=== PATIENT | female | born 1955 | race Caucasian/White ===

== ENCOUNTER 2019-01-11 09:55 | Emergency (ER) | payer BC ==
[2019-01-11 10:09] VITALS: BP 144/79
--- NOTE | 2019-01-11 10:23 | UC ---
Knee Pain HPI - HPI Summary HPI Summary: 63-year-old woman comes in with a chief complaint of right knee pain. She stumbled last evening on some steps and felt a pop in her knee. Had pain right away. She also has swelling in the knee. Pain is worse with any kind of ambulation or attempting to bend the knee. The patient has the least amount of pain with her knee is extended and not weightbearing. She did use some ice which did help decrease the pain no ibuprofen. Patient did injure this knee years ago and had a meniscal tear but it ended up healing on its own. Patient reports this reminds her of her meniscal tear. - History of Current Complaint Chief Complaint: UCLowerExtremity Stated Complaint: RT KNEE INJURY Time Seen by Provider: 01/11/19 10:19 Pain Intensity: 8 - Allergies/Home Medications Allergies/Adverse Reactions: Allergies Allergy/AdvReac Type Severity Reaction Status Date / Time No Known Allergies Allergy Verified 01/11/19 10:04 Home Medications: Home Medications NK [No Home Medications Reported] 01/11/19 [History Confirmed 01/11/19] PMH/Surg Hx/FS Hx/Imm Hx Previously Healthy: Yes - Surgical History Surgical History: Yes Surgery Procedure, Year, and Place: Hernia RepaiR X2. Breast REDuction 1979. Bunion - Family History Known Family History: Positive: Non-Contributory - Social History Alcohol Use: None Substance Use Type: None Smoking Status (MU): Never Smoked Tobacco Review of Systems All Other Systems Reviewed And Are Negative: Yes Constitutional: Positive: Negative Skin: Positive: Negative Eyes: Positive: Negative ENT: Positive: Negative Respiratory: Positive: Negative Cardiovascular: Positive: Negative Gastrointestinal: Positive: Negative Motor: Positive: Decreased ROM Neurovascular: Positive: Negative Musculoskeletal: Positive: Other: - SEE HPI Neurological: Positive: Negative Psychological: Positive: Negative Is Patient Immunocompromised?: No Physical Exam Triage Information Reviewed: Yes Appearance: Well-Appearing, No Pain Distress, Well-Nourished Vital Signs: Initial Vital Signs Temp 98.1 F 01/11/19 10:04 Pulse 71 01/11/19 10:04 Resp 18 01/11/19 10:04 BP 144/79 01/11/19 10:04 Pulse Ox 97 01/11/19 10:04 Vital Signs Reviewed: Yes Eye Exam: Normal Eyes: Positive: Conjunctiva Clear Neck: Positive: Supple Respiratory: Positive: No respiratory distress Musculoskeletal: Positive: Other: - The right knee has an effusion. It's tender to palpation primarily on the anterolateral aspect. Patient keeps it extended she declines flexion as a gets her pain. She does have some pain with Abelardo's. Stable to exam otherwise. Neurological: Positive: Alert Psychological: Positive: Age Appropriate Behavior Skin Exam: Normal Knee Pain Course/Dx - Course Course Of Treatment: Attending Doctor: Amol Vo ([id number]) General Freight Agent: Lewis Menon ([id number]) Advertising Display Rotator: CALVIN (NUANCE) Report Date: 01/11/2019 10:12:00 Report Status: Final Begin of Report Content Patient Name: BERNY CASTLE Medical Record#: [id number] Ordering Physician: Amol Vo MD Acct.#: [id number] : 1955 Age: 63 Sex: F Location: [facility] Exam Date: 01/11/19 1012 ADM Status: REG ER Order Information: KNEE RIGHT 4+ VWS Accession Number: [id number] CPT: 28581 Indication: Lateral RIGHT knee pain following injury going up stairs last night. [place] pop. Comparison: None. Technique: RIGHT knee: AP, tunnel, lateral, sunrise views. Report: No definitive joint effusion. Negative for fracture or malalignment. Mild osteophytosis. Negative for significant joint space narrowing. Unremarkable soft tissue contours. IMPRESSION: #. No fracture evident. #. Mild osteoarthritis. <Electronically signed by Lewis Menon MD in OV> 01/11/19 1040 I discussed the x-rays with the patient. In clinic here patient was placed in a knee immobilizer by nursing neurovascular intact after placement of the knee immobilizer. Patient also given a cane. Patient reports she has some crutches at home that she can use if needed. I also recommended potentially walker could be helpful. She can use ibuprofen and ice and then follow up with either sports medicine or orthopedics. - Differential Dx/Diagnosis Provider Diagnosis: Effusion, right knee, Right knee pain Discharge - Sign-Out/Discharge Documenting (check all that apply): Patient Departure All imaging exams completed and their final reports reviewed: Yes - Discharge Plan Condition: Stable Disposition: HOME Patient Education Materials: Swollen Knee Joint (ED), Knee Pain (ED) Referrals: Saud Bond MD [Primary Care Provider] - Alvino Mendez MD [Medical Doctor] - [facility] [Provider Group] Additional Instructions: FOLLOW UP WITH ORTHOPEDICS OR SPORTS MEDICINE. GET RECHECKED SOONER IF YOUR CONDITION WORSENS OR ANY QUESTIONS OR CONCERNS. - Billing Disposition and Condition Condition: STABLE Disposition: Home
== END 2019-01-11 11:24 | disposition home or self-care (01) ==
LOC: UCEAST 09:55
DX: M25.461 Effusion, right knee (principal); M25.561 Pain in right knee
CPT/HCPCS: 99213; G0463

== ENCOUNTER 2019-07-08 05:35 | Day surgery (SDC) | payer BC ==
--- NOTE | 2019-07-01 16:19 | HP ---
HISTORY AND PHYSICAL: DATE OF ADMISSION: 07/08/19 PROVIDER: Dr. Hali Daugherty.* (DICTATED BY SHANTE CALL) HISTORY OF PRESENT ILLNESS: The patient is a 64-year-old female who injured her knee on 01/10/19 when she was going down porch steps and felt a pop in the posterior medial joint line. The patient reports since then she has had an intermittent 3-7/10 pain in her right knee. She had feelings of catching and sharp pain with pivoting, twisting, bending, and squatting. She has used ibuprofen and ice, and was given a steroid injection at one of her appointments. An MRI was obtained, which did show patellofemoral arthritis, lateral meniscus tear and a ganglion cyst just anterior to the medial meniscus. She would like to proceed with a right knee arthroscopy with a partial medial meniscectomy, possible synovectomy and possible chondroplasty. PAST MEDICAL HISTORY: 1. GERD . 2. Osteoarthritis. 3. History of alcohol abuse. PAST SURGICAL HISTORY: 1. Bunion surgery. 2. Hernia repair x2. 3. Breast reduction. 4. Finger surgery, left ring finger. MEDICATIONS: 1. Glucosamine and chondroitin. 2. Food-based supplements. 3. CBD Oil. ALLERGIES: No known drug allergies FAMILY HISTORY: Maternal - diabetes, heart disease, hypertension and cancer. SOCIAL HISTORY: The patient lives with her spouse. 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 No tobacco, alcohol, or recreational drug use. Normally active with weightlifting, gardening, and motorcycles. She is right-hand dominant. REVIEW OF SYSTEMS: General: The patient denies any fevers, chills, or night sweats. No known anesthesia problems. HEENT: The patient denies any headaches , lightheadedness, or syncopal episodes. Cardiothoracic: The patient denies any chest pain, heart palpitations or edema. Pulmonary: The patient denies any shortness of breath with exertion, chronic cough, COPD. GI: The patient denies any nausea, vomiting, diarrhea or constipation. : The patient denies any nocturia, urinary frequency or urgency. MSK: The patient denies any chronic or intermittent back pain. Neuro: The patient denies any paresthesias , numbness or seizures. Integument: The patient denies any abrasions, lesions , rashes, lumps, or open sores. PHYSICAL EXAMINATION GENERAL: The patient is alert and oriented x3 with appropriate mood and affect , appropriately dressed and hygiene. HEENT: Normocephalic, atraumatic. Hearing and vision are grossly intact. PULMONARY: Lungs are clear to auscultation bilaterally with no wheezes, rales or rhonchi. CARDIO: Regular rate and rhythm. Normal S1 and S2. No appreciable S3 or S4. No murmurs, rubs or gallops. MSK: Right lower extremity: Inspection of the right knee reveals no erythema or ecchymosis. Skin is warm, dry and intact. There is slight tenderness along the medial and lateral joint lines. She has a positive Apley's and Abelardo's test. Mild effusion. 5-120 degrees of flexion at the knee. No varus or valgus instability. No anterior and posterior drawer instability. She is neurovascularly intact distally with a 2+ dorsalis pedis pulse. ASSESSMENT: Right knee lateral meniscus tear. PLAN: To the OR for a right knee arthroscopy with partial medial meniscectomy, possible synovectomy and possible chondroplasty. The risks and complications of surgery were reviewed with the patient and a signed understanding was obtained. The patient will follow up in 10 to 14 days postop for suture removal. SHANTE CALL [id number]/[facility] #: [id number] DIANA
[~2019-07-08 05:35] MED LIST: Buffered Lidocaine 1% SYRIN* 1 ML/SYRINGE INTRADERM ONE
[2019-07-08] MEDS ORDERED: Lactated Ringers 1000 ML Bag* 1,000 ML IV SCH (06:00)
[2019-07-08] MEDS ORDERED: ceFAZolin 2 GM PREMIX in ORs 2 GM/50 ML BAG ONE (06:08)
[2019-07-08] MEDS ORDERED: ROPIVACAINE 5 MG/ML 30 ML BTL (0.5%) ONE (07:03)
[2019-07-08] MEDS ORDERED: EPINEPHRINE 1 MG/ML 1 ML VIAL ONE (07:03)
[2019-07-08] MEDS ORDERED: methylPREDNISolone ACETATE 80* 80 MG/ML 1 ML VIAL ONE (07:03)
[2019-07-08] MEDS ORDERED: HYDROmorphone INJ1* 1 MG/ML SYRINGE ONE (07:31)
[2019-07-08] MEDS ORDERED: Propofol* 10 MG/ML 20 ML BTL ONE (07:31)
[2019-07-08] MEDS ORDERED: Naloxone* 0.4 MG/ML 1 ML VIAL IV PRN (08:05)
[2019-07-08] MEDS ORDERED: Ondansetron INJ* 2 MG/ML VIAL IV PRN (08:05)
[2019-07-08] MEDS ORDERED: HYDROmorphone INJ1* 1 MG/ML SYRINGE IV PRN (08:05)
[2019-07-08] MEDS ORDERED: Ibuprofen TAB* 200 MG PO PRN (08:06)
[2019-07-08] MEDS ORDERED: Ondansetron INJ* 2 MG/ML VIAL ONE (08:09)
[2019-07-08] MEDS ORDERED: Ketorolac INJ* 30 MG/ML 1 ML VIAL ONE (08:10)
[2019-07-08] MEDS ORDERED: Dexamethasone IV* 4 MG/ML 1 ML (4 MG) ONE (08:10)
[2019-07-08] MEDS ORDERED: EPHEDrine (Pressors)* 50 MG/ML VIAL ONE (08:12)
[2019-07-08] MEDS ORDERED: Ibuprofen TAB* 200 MG ONE (09:34)
[2019-07-08 09:35] VITALS: BP 128/86
--- NOTE | 2019-07-09 02:06 | OP ---
DATE OF OPERATION: 07/08/19 [facility] DATE OF : 55 ATTENDING SURGEON: Hali Daugherty MD PRESS HAND: SHANTE Willard. Ms. Justice did help throughout the procedure with preparation of the leg, wound retraction, manipulation of the knee, and wound closure. ANESTHESIOLOGIST: Dr. Neo Hernandez ANESTHESIA: General. PRE-OP DIAGNOSES: Right knee medial meniscal tear, mild to moderate osteoarthritis, anterior ganglion cyst. POST-OP DIAGNOSES: Right knee medial meniscal tear, mild to moderate osteoarthritis, anterior ganglion cyst. OPERATIVE PROCEDURE: Right knee arthroscopy with partial medial meniscectomy and anterior synovectomy. SPECIMENS: None. ESTIMATED BLOOD LOSS: Less than 25 cc. COMPLICATIONS: None. BRIEF HISTORY/INDICATIONS: Ms. Hoyos is a 64-year-old female who had an acute injury to her right knee about 6 months ago. She treated this nonoperatively, but continued to have mechanical symptoms along the medial joint line. MRI confirmed a medial meniscal tear. She was also found on MRI to have anterior joint line ganglion. Due to continued pain and decreased quality of life, the patient elected to undergo right knee arthroscopy with partial meniscectomy and possible synovectomy versus ganglion excision. Informed consent was obtained from the patient. She understood the risks of surgery included but were not limited to bleeding, infection, damage to nearby structures, continued pain, recurrence of the ganglion, retear of the meniscus, progression of arthritis, stroke, heart attack, blood clot, and . She wished to proceed. INTRAOPERATIVE FINDINGS: The patient was noted to have large amount of synovitis anteriorly. The ganglion itself was not well visualized. Medial meniscal tear was a radial type tear involving the posterior one-third of the meniscus in the red-red and red-white zone. The patient was noted to have some grade 2 and 3 Outerbridge cartilage changes in the medial and patellofemoral compartment. DESCRIPTION OF PROCEDURE: Ms. Hoyos was identified in the preanesthesia unit. Her right lower extremity was marked as the correct operative site. Informed consent was signed and placed in the chart. The patient was taken to the operating room and placed under anesthesia without complication. Preop time -out was made to correctly identify the patient side and site. Appropriate perioperative antibiotics were given within 1 hour of incision. Standard anterolateral portal incision was made with a 10 blade and carried down to the capsule. Trocar was introduced. As soon as the light and water sources were turned on, there was immediate visualization of the suprapatellar pouch. A tour of the knee joint was performed. Suprapatellar pouch had no obvious abnormality. Patellofemoral compartment had some grade 2 and 3 Outerbridge cartilage changes. Medial gutters showed no plica or loose body. Medial compartment showed some grade 2 and 3 Outerbridge cartilage changes along the medial femoral condyle. There was a radial type tear of the posterior one-third of the medial meniscus which was red- white and red-red zone. ACL and PCL appeared to be intact. There was a large amount of anterior synovitis. The ganglion itself was not visualized distinctly. The knee was placed in a [id number] position. Lateral meniscus had no obvious tear. There were minimal degenerative changes in the lateral compartment. No obvious loose body or plica in the lateral gutter. Under direct visualization, a medial portal incision was made with a 10 blade. Probe was introduced and a second tour of the knee joint was performed. No additional findings were noted. Shaver and radiofrequency ablation wand were used to perform anterior synovectomy. The anterior ganglion cyst was likely excised during this process. Next, straight biter and shaver were used to perform partial medial meniscectomy. The tear was excised. A smooth border of the medial meniscus was obtained. Radiofrequency ablation wand was then used to further smooth the edge of the meniscus. This was mainly in the red-white zone of the medial meniscus. Further probing of the medial meniscus showed no additional tears. The knee was copiously irrigated with sterile saline. All instruments were removed. Incisions were closed using 3-0 nylon suture. Xeroform, 4 x 4, and Webril were used to cover the incision. Vincent wrap and cold pack were placed over this. The patient's anesthesia was reversed without difficulty. She was taken to the PACU in stable condition. Intended weightbearing will be weightbearing as tolerated. Intended DVT prophylaxis will be aspirin. She will follow up in 2 weeks' time for suture removal. [id number]/[facility] #: [id number] DIANA
== END 2019-07-08 10:43 | disposition home or self-care (01) ==
LOC: OR 05:35
PROVIDERS: ATTEND Orthopaedic Surgery Adult Reconstructive Orthopaedic Surgery
DX: S83.241A Other tear of medial meniscus, current injury, right knee, initial encounter (principal); X50.0XXA Overexertion from strenuous movement or load, initial encounter; Y93.89 Activity, other specified; Y92.9 Unspecified place or not applicable; M17.11 Unilateral primary osteoarthritis, right knee; M65.861 Other synovitis and tenosynovitis, right lower leg; M67.461 Ganglion, right knee
CPT/HCPCS: A9270-GY; J0690; J1040; J1100; J1170; J1885; J2405; J2704; J2795